=== PATIENT | female | born 1995 | race African-American/Black ===

== ENCOUNTER 2018-02-20 00:39 | Emergency (ER) | payer SELFPAY ==
[~2018-02-20] VITALS: Ht 162.6 cm; Wt 60.0 kg
[2018-02-20] MEDS ORDERED: ACETAMINOPHEN 500MG TABLET PO ONE (05:45)
[2018-02-20] MEDS ORDERED: LIDOCAINE HCL/PF 1% 2ML VIAL INFIL ONE (05:45)
[2018-02-20] MEDS ORDERED: BACITRACIN ZINC OINT UDPKT TOP ONE (05:45)
[2018-02-20] MEDS ORDERED: LIDOCAINE HCL/PF 1% 10 MG/ML 5ML VIAL IJ NR (06:00)
[2018-02-20 06:06] VITALS: BP 106/63
== END 2018-02-20 07:02 | disposition home or self-care (01) ==
LOC: ER 00:39
DX: S01.511A Laceration without foreign body of lip, initial encounter (principal); S05.10XA Contusion of eyeball and orbital tissues, unspecified eye, initial encounter; Y08.89XA Assault by other specified means, initial encounter; Y93.9 Activity, unspecified; Y92.9 Unspecified place or not applicable
CPT/HCPCS: 12011; 99283; J3490; Z7610